=== PATIENT | male | born 1975 | race Caucasian/White ===

== ENCOUNTER 2022-05-25 08:02 | Outpatient (CLI) | payer BC ==
[2022-05-25] MEDS ORDERED: Iopamidol 300 61% 100 ML VIAL FS ONE (08:58)
== END 2022-05-25 08:03 | disposition home or self-care (01) ==
LOC: CSHCT 08:02
PROVIDERS: ATTEND Specialist
DX: R22.1 Localized swelling, mass and lump, neck (principal); C85.98 Non-Hodgkin lymphoma, unspecified, lymph nodes of multiple sites
CPT/HCPCS: 70491; 71260; Q9967

== ENCOUNTER → 2023-04-19 | Outpatient (CLI) | payer BC ==
[~2023-04-19] MED LIST: Iopamidol 300 61% 100 ML VIAL FS ONE
== END ==
LOC: CSHCT 09:00 → EDSTATUS 13:00
PROVIDERS: ATTEND Internal Medicine Hematology & Oncology
DX: C83.31 Diffuse large B-cell lymphoma, lymph nodes of head, face, and neck (principal); M79.89 Other specified soft tissue disorders
CPT/HCPCS: 70491; 71260; 74177; Q9967

== ENCOUNTER 2024-03-17 07:51 | Outpatient (CLI) | payer BC ==
[2024-03-17] MEDS ORDERED: Iopamidol 300 61% 100 ML VIAL FS ONE (12:02)
== END 2024-03-17 07:52 | disposition home or self-care (01) ==
LOC: CSHCT 07:51
PROVIDERS: ATTEND Internal Medicine Hematology & Oncology
DX: C85.90 Non-Hodgkin lymphoma, unspecified, unspecified site (principal)
CPT/HCPCS: 71260; 74177; Q9967